=== PATIENT | male | born 1970 | race African-American/Black ===

== ENCOUNTER 2020-08-24 02:54 | Inpatient (IN) | payer OTHER, SELFPAY ==
[2020-08-24 03:25] VITALS: BP 107/58; PULSE 88; RESP 16; TEMP 35.8; O2SAT 98
--- NOTE | 2020-08-24 04:09 | PC.ADMIT ---
Patient is a 49 year old male was transferred from [facility]- ED to [place] [id number] on 08/24/20 at around 0305 for questionable bart. Paient was given Ativan 1 and zypreza zydis 10 at around 2242 on 08/23/20 for disorganization. elevated mood in the ED which patient was calm and able to sleep for couple hours prior to transfered. Patient was so sedated still from medications and was not able to awake to participate in the admission interview. Patient just nod his head to some questions about CV when one of the geriatric social worker from Care Team reviewed and explained the CV for patient. Per crisis and information from [facility], med hx include heat rash, irregular heart beats, EKG, and lab works were unremarkable. NSR and normal EKG result. Past surgical hx: anterior cruciate ligament repair, colon surgery. Pyschiatric hx: Bipolar I with most recent inpatient 2009, and 2012 with the same/similar presentation like disorganization, thought block, labile, trauma hx . Per crisis, stresses from job insecurity and a talk with his long-term partner about legal marriage are big stressors for him. Patient is currently working as as operations and maintenance technican at [employer] and is on the list of two-week [email or web address] start next week. Patient has not taking medication for about six years. Per his partner, patient was forgetful as he forgets to eat. Sleep also was disturbances reduced need for sleep. Nurse to nurse was done. Nurse to DOC will be done shorty in an hour. Patient is on 5 min checks with [facility] bathroom. Patient signed the CV, unable to obtain suicidal thoughts or suicide attempts in the past but per crisis patient has no suicide attemp hx. Patient is a non smoker and has no hx of SA or treatment.
--- NOTE | 2020-08-24 04:47 | PC.NURSE ---
Patient currently sleeping in one of the group rooms.
[2020-08-24 04:48] VITALS: BMI 27.1
--- NOTE | 2020-08-24 09:05 | HO.PSYADMNOT ---
HPI Chief Complaint: 49 year old man who was admitted with an increase Sources of Information: patient interviewed, chart reviewed and crisis/core team assessment reviewed HPI Narrative: Iris was evaluated by COOK CANDY at their crisis office after he was brought to crisis by his and 14 year old daughter. There has been increasing concern about his thinking and his demeanor. He has been suffering under a lot of stress and this has been made worse by his being placed on indefinite furlough by his employer, [employer] He reports that he has a lot of difficulty with transitions. He has been worried about what to do next. The patient's partner is afraid that he is becoming manic and that he needs help to stabilize. He has not been himself. He was hospitalized in 2012. David declines to say much more about his symptoms. He was guarded and not forthcoming with information. He was concerned about what would be in the record. He denies manic symptoms, states he is thinking clearly and he has no psychosis. He was in behavioral control and had no SI. He wanted only to know when he could leave. He did not want to talk about medication and said he would not take them. Past Psychiatric History: Hospital stay in 2013. Details are unclear He is not in treatment at this time Medical Evaluation Reviewed: Hospitalist Sravan Pending [facility] Medical History (Updated 08/24/20 @ 14:58 by Krissy Yee MD) Bipolar disorder Heat rash Irregular heart beats Narrative: No acute symptoms Surgical History History of repair of ACL Family History: Mother has Schizophrenia Social History: Lives with his partner and younger child, age 14. Works at [employer] and he is going to have to go on furlough. Substance History: Denies Trauma History: History but details are unknown Diagnostics Vital Signs (24Hr): Vital Signs - 24 hr 08/24/20 03:25 Temperature 96.4 F L Pulse Rate 88 Respiratory Rate 16 Blood Pressure 107/58 L Pulse Oximetry 98 Body Mass Index 27.1 Meds/Allergies Meds Home Medications Medication Instructions Recorded Confirmed Type No Known Home Meds 08/24/20 08/24/20 History Allergies Allergies Allergy/AdvReac Type Severity Reaction Status Date / Time No Known Allergies Allergy Unverified 08/04/20 18:37 Mental Status Exam Mental Status Exam Patient Appearance: Well Grooomed Patient Orientation: Person, Place, Time and Situation Level of Consciousness: Awake and Appropriate Patient Behavior: Appropriate, Guarded, Suspicious and Fearful Mood Description: Calm, Suspicious, Anxious and Blunted Affect Description: Calm, Suspicious, Anxious and Blunted Patient Cognition Impaired: No Ability to Follow Directions: Good Speech Pattern: Clear, Appropriate and Coherent Memory Description: Intact Hallucinations: None Delusions: Paranoid Ideation Thought Process: Goal Oriented Thought Content: negative for Flight of Ideas, positive for Goal Oriented, negative for Suicidal Ideation and negative for Homicidal Ideation Judgement: Poor Assessment & Plan Assessment & Plan (1) Bipolar disorder: Status: Inactive Code(s): F31.9 - Bipolar disorder, unspecified Assessment and Plan: Encourage medication such as risperdal to treat paranoia Observe Collect collateral history from his Make appropriate referrals ELS 5 days (2) General medical exam: Status: Inactive Code(s): Z00.00 - Encounter for general adult medical examination without abnormal findings Assessment and Plan: Hospitalist intervention appreciated
--- NOTE | 2020-08-24 10:00 | P.CONIM_ITS ---
History of Present Illness Data of Consult Service Date: 08/24/20 <QIAN Sams - Last Filed: 08/24/20 12:17> Requesting physician: Krissy Yee <QIAN Sams - Last Filed: 08/24/20 12:17> Primary Care Provider: This is a 49-year-old male transferred from [facility] emergency department to for management of bart in the setting of bipolar disorder. The hospitalists were asked to see him for a routine consultation. Patient denies any complaints at this time. <QIAN Sams - Last Filed: 08/24/20 12:17> Review of Systems Review of Systems: Yes all other systems are reviewed and are negative <QIAN Sams - Last Filed: 08/24/20 12:17> Constitutional: Constitutional: Denies chills and Denies fever(s) <QIAN Sams - Last Filed: 08/24/20 12:17> Cardiovascular: Cardiovascular: Denies chest pain <QIAN Sams - Last Filed: 08/24/20 12:17> Respiratory: Respiratory: Denies cough <QIAN Sams - Last Filed: 08/24/20 12:17> Gastrointestinal: Gastrointestinal: Denies abdominal pain <QIAN Sams - Last Filed: 08/24/20 12:17> [facility] Medical History: Medical History (Updated 09/03/20 @ 00:01 by Liberty Thorne) Bipolar disorder Heat rash Irregular heart beats <QIAN Sams - Last Filed: 08/24/20 12:17> Family History: Family History (Updated 08/24/20 @ 10:04 by QIAN Sams) Other Hypertension <QIAN Sams - Last Filed: 08/24/20 12:17> Surgical History: Surgical History History of repair of ACL <QIAN Sams - Last Filed: 08/24/20 12:17> Social History: Social History (Updated 08/24/20 @ 10:09 by QIAN Sams) Household Members: Significant Other and Children Housing: Apartment Alcohol intake: current Alcohol intake frequency: other Smoking Status: Former smoker Second Hand Smoke Exposure: No Substance Use Type: Unknown Advance Directives: No Advance Directives Information Provided: No service: No Sexual orientation: Straight/Heterosexual <QIAN Sams Last Filed: 08/24/20 12:17> Meds Allergies/Adverse reactions: Allergies Allergy/AdvReac Type Severity Reaction Status Date / Time No Known Allergies Allergy Unverified 08/04/20 18:37 <QIAN Sams - Last Filed: 08/24/20 12:17> Home medications: Home Medications Medication Instructions Recorded Confirmed Type No Known Home Meds 08/24/20 08/24/20 History <QIAN Sams Last Filed: 08/24/20 12:17> Physical Exam Vital Signs and Narrative: Vital Signs: Last Vital Signs Temp 96.4 F L 08/24/20 03:25 Pulse 88 08/24/20 03:25 Resp 16 08/24/20 03:25 BP 107/58 L 08/24/20 03:25 Pulse Ox 98 08/24/20 03:25 Body Mass Index 27.1 <QIAN Sams Last Filed: 08/24/20 12:17> Const: Nutritional Appearance: well nourished <QIAN Sams Last Filed: 08/24/20 12:17> Orientation/consciousness: patient oriented x3 <QIAN Sams Last Filed: 08/24/20 12:17> HENMT: Head: Yes normocephalic and Yes atraumatic <QIAN Sams Last Filed: 08/24/20 12:17> Eyes: Sclerae: sclerae normal <QIAN Sams Last Filed: 08/24/20 12:17> Chest: Chest palpation & inspection: normal inspection of the chest <QIAN Sams Last Filed: 08/24/20 12:17> Resp: Effort & Inspection: normal respiratory effort and no respiratory distress <QIAN Sams Last Filed: 08/24/20 12:17> Auscultation: clear to auscultation bilaterally <QIAN Sams - Last Filed: 08/24/20 12:17> Cardio: Rate: regular rate <QIAN Sams - Last Filed: 08/24/20 12:17> Rhythm: regular rhythm <QIAN Sams - Last Filed: 08/24/20 12:17> Neuro: General: patient oriented x3 <QIAN Sams Last Filed: 08/24/20 12:17> Cranial nerves: Yes CN's II-XII intact bilaterally and Yes Bilaterally intact EOM present <QIAN Sams Last Filed: 08/24/20 12:17> Extrem: General: Yes normal to inspection <QIAN Sams Last Filed: 08/24/20 12:17> Assessment and Plan (1) General medical exam: Status: Resolved <QIAN Sams Last Filed: 08/24/20 12:17> This is a 49-year-old male transferred from [facility] emergency department to for management of bart in the setting of bipolar disorder. The hospitalists were asked to see him for a routine consultation. patient was medically cleared at [facility] prior to transfer. there are no active medical conditions at this time. thank you for allowing us to participate in the care of this patient This case was discussed with Dr. Mathis <QIAN Sams - Last Filed: 08/24/20 12:17>
[2020-08-24 10:47] VITALS: BP 128/68; PULSE 101; RESP 12; TEMP 36.3; O2SAT 100
--- NOTE | 2020-08-24 12:10 | PC.NURSE ---
PTS ADMISSION COMPLETED. PT OFFERED FLU SHOT WHICH HE SAID HE ORIGINALLY WANTED, BUT DECLINED AT THIS TIME. PT BECAME INCREASINGLY GUARDED T/W INTERVIEWED HIM.
[2020-08-25 06:00] VITALS: BP 121/67; PULSE 87; RESP 16; TEMP 36.3; O2SAT 99
[2020-08-25 07:00] VITALS: BMI 27.8
--- NOTE | 2020-08-25 09:12 | HO.PSYCHPN ---
Subjective Subjective Date of Service: 08/25/20 Reason For Visit: 49 year old man who was admitted with an increase Subjective Notes: Conditional Voluntary Interim History: David reports that although he does not feel that he is ill or that he needs medication his partner feels strongly that he needs to be in treatment for bipolar disorder. He did well on depakote, risperdal and cogentin and would like to start both. He plans to perhaps live with family members for a time when he leaves. Medication Compliance: Yes Side effects from medications: No Attending Groups: Yes Review of Systems Acute medical concerns: No Medical Review of Systems: unchanged Mental Status Exam Mental Status Exam Patient Appearance: Well Grooomed Patient Orientation: Person, Place, Time and Situation Level of Consciousness: Awake and Appropriate Patient Behavior: Appropriate, Guarded, Suspicious and Fearful Mood Description: Calm, Suspicious, Anxious and Blunted Affect Description: Calm, Suspicious, Anxious and Blunted Patient Cognition Impaired: No Ability to Follow Directions: Good Speech Pattern: Clear, Appropriate and Coherent Memory Description: Intact Hallucinations: None Delusions: Paranoid Ideation Thought Process: Goal Oriented Thought Content: negative for Flight of Ideas, positive for Goal Oriented, negative for Suicidal Ideation and negative for Homicidal Ideation Judgement: Poor Diagnostics Vital Signs (24Hr): Vital Signs - 24 hr 08/24/20 10:47 08/25/20 06:00 Temperature 97.3 F 97.4 F Pulse Rate 101 H 87 Respiratory Rate 12 16 Blood Pressure 128/68 121/67 Pulse Oximetry 100 99 Body Mass Index 27.8 Medications Medications Current Medications Generic Name Dose Route Start Last Admin Trade Name Freq PRN Reason Stop Dose Admin Acetaminophen 650 mg 08/24/20 09:09 Acetaminophen 325 Mg Tablet PO Q6H PRN Headache/Pain Mild Scale (1-3) Al Hydroxide/Mg Hydroxide 30 ml 08/24/20 09:09 Magnesium Hydrox/Alum Hydrox 30 Ml Oral.Susp PO Q6H PRN Heartburn/Nausea Hydroxyzine HCl 25 mg 08/24/20 09:09 Hydroxyzine Hcl 25 Mg Tablet PO BEDTIME PRN Anxiety Magnesium Hydroxide 30 ml 08/24/20 09:09 Milk Of Magnesia 30 Ml Oral.Susp PO DAILY PRN Constipation Trazodone HCl 50 mg 08/24/20 09:09 Trazodone Hcl 50 Mg Tablet PO BEDTIME PRN Insomnia Allergies Allergies Allergy/AdvReac Type Severity Reaction Status Date / Time No Known Allergies Allergy Unverified 08/04/20 18:37 Assessment & Plan Assessment & Plan (1) Bipolar disorder: Status: Acute Code(s): F31.9 - Bipolar disorder, unspecified Assessment and Plan: Individual is calmer and in better control. Start depakote, ripserdal and cogentin. Collect collateral history. Anticipate DC 08/29/20 Greater than 50% of the session was spent on counseling and/or coordination of care Patient educated on: diagnosis and medication risk/benefits Reason for contiued inpatient stay Substantial Risk for: rapid decompensation
[2020-08-25 19:35] VITALS: BP 154/71; PULSE 93; TEMP 36.1
[2020-08-25] MEDS: Benztropine Mesylate 0.5 MG TABLET PO (21:59)
[2020-08-25] MEDS: Divalproex Sodium ER 500 MG TAB.ER.24H 1000 MG PO (21:59)
[2020-08-25] MEDS: risperiDONE 1 MG TABLET PO (21:59)
[2020-08-26 06:10] VITALS: BP 118/56; PULSE 85; RESP 16; TEMP 36.3; O2SAT 100
--- NOTE | 2020-08-26 10:29 | HO.PSYCHPN ---
Subjective Subjective Reason For Visit: 49 year old man who was admitted with an increase Diagnostics Vital Signs (24Hr): Vital Signs - 24 hr 08/25/20 19:35 08/26/20 06:10 Temperature 97.0 F 97.4 F Pulse Rate 93 85 Respiratory Rate 16 Blood Pressure 154/71 H 118/56 L Pulse Oximetry 100 Body Mass Index 27.8 Medications Medications Current Medications Generic Name Dose Route Start Last Admin Trade Name Freq PRN Reason Stop Dose Admin Acetaminophen 650 mg 08/24/20 09:09 Acetaminophen 325 Mg Tablet PO Q6H PRN Headache/Pain Mild Scale (1-3) Al Hydroxide/Mg Hydroxide 30 ml 08/24/20 09:09 Magnesium Hydrox/Alum Hydrox 30 Ml Oral.Susp PO Q6H PRN Heartburn/Nausea Benztropine Mesylate 0.5 mg 08/25/20 21:00 08/25/20 21:59 Benztropine Mesylate 0.5 Mg Tablet PO 0.5 mg BEDTIME DAVID Administration Divalproex Sodium 1,000 mg 08/25/20 21:00 08/25/20 21:59 Divalproex Sodium Er 500 Mg Tab.Er.24h PO 1,000 mg BEDTIME DAVID Administration Hydroxyzine HCl 25 mg 08/24/20 09:09 Hydroxyzine Hcl 25 Mg Tablet PO BEDTIME PRN Anxiety Magnesium Hydroxide 30 ml 08/24/20 09:09 Milk Of Magnesia 30 Ml Oral.Susp PO DAILY PRN Constipation Risperidone 1 mg 08/25/20 21:00 08/25/20 21:59 Risperidone 1 Mg Tablet PO 1 mg BEDTIME DAVID Administration Trazodone HCl 50 mg 08/24/20 09:09 Trazodone Hcl 50 Mg Tablet PO BEDTIME PRN Insomnia Allergies Allergies Allergy/AdvReac Type Severity Reaction Status Date / Time No Known Allergies Allergy Unverified 08/04/20 18:37 Assessment & Plan Greater than 50% of the session was spent on counseling and/or coordination of care
--- NOTE | 2020-08-26 13:00 | PM.PSYDC ---
DS: Providers Provider Date of admission: 08/24/20 02:54 Primary care physician: Unknown Physician Consults: 08/24/20 09:10 Consult to Hospitalist Routine Consulting Provider: Nora Barnett Reason for consultation: Protocol - admission from [facility] Attending physician on discharge: Krissy Yee Anticipated date of discharge: 08/26/20 DS: Diagnosis Discharge Diagnosis (1) Bipolar disorder: Status: Acute Problem details: Individual has started medications and has tolerated the same. He has not had any behavioral issues.h He plans to go to his FU appointments Discharge Plan Discharge Patient Disposition: Home, Self-Care Referrals: DR. DE PAZ, PSYCHIATRIST [Other] - 09/20/20 1:00 pm ([facility]LE[facility]) STAR AHMADI, THERAPIST [Other] - 09/06/20 10:00 am ([facility]) Abbie Montes MD [Physician] - 09/02/20 12:00 pm Discharge Medications: New benztropine 0.5 mg Tablet 0.5 mg PO BEDTIME Qty: 30 RF: 0 trazodone 50 mg Tablet 50 mg PO BEDTIME PRN (Reason: Insomnia) Qty: 30 RF: 0 divalproex 500 mg Tablet Extended Release 24 Hr 1,000 mg PO BEDTIME Qty: 60 RF: 0 risperidone 1 mg Tablet 1 mg PO BEDTIME Qty: 30 RF: 0 No Action No Known Home Meds RF: 0 Discharge Orders: Discharge Order (Routine); Ordered 08/26/20 Ordered By: Krissy Yee Diet: advance to your usual diet Activity on Discharge: As tolerated Stand Alone Forms: Community Support Other Ambulatory Orders: Valproate (Routine) Timeframe: 20200830 Facility: [facility] - Location: [address]Lab Ordered By: Krissy Yee Visit Report Forms: Patient Portal Discharge page Care Plan Goals: Reduce paranoia Health Concerns: Paranoia Plan of Treatment: Continue on medications Follow up with your appointments Go to lab at [facility] to have your depakote level checked on 08/30/20. Mental Status Exam Mental Status Exam Patient Appearance: Well Grooomed Patient Orientation: Person, Place, Time and Situation Level of Consciousness: Awake and Appropriate Patient Behavior: Appropriate, Guarded and Suspicious Mood Description: Calm, Anxious and Blunted Affect Description: Calm, Anxious and Blunted Patient Cognition Impaired: No Ability to Follow Directions: Good Speech Pattern: Clear, Appropriate and Coherent Memory Description: Intact Hallucinations: None Delusions: Paranoid Ideation Thought Process: Goal Oriented Thought Content: negative for Flight of Ideas, positive for Goal Oriented, negative for Suicidal Ideation and negative for Homicidal Ideation Judgement: Poor DS: Summary Hospital Course Hospital Course: [facility] [address] Simmons was evaluated by RADIOGRAPHY TECHNICIAN at their crisis office after he was brought to crisis by his and 14 year old daughter. There had been increasing concern about his thinking and his demeanor. He has been suffering under a lot of stress and this has been made worse by his being placed on indefinite furlough by his employer, [employer]. He reported that he has a lot of difficulty with transitions. He has been worried about what to do next. The patient's partner was afraid that he is becoming manic and that he needs help to stabilize. He has not been himself. He was hospitalized in 2013. David declined to say much more about his symptoms. He was guarded and not forthcoming with information. He was concerned about what would be in the record. He denies manic symptoms, states he is thinking clearly and he has no psychosis. He was in behavioral control and had no SI. He wanted only to know when he could leave. He did not want to talk about medication and said he would not take them. Past Psychiatric History: Hospital stay in 2013. Details are unclear He is not in treatment at this time. David was admitted on a CV. He was medically cleared prior to his admission. He had no acute medical issues. Labs are below. On arrival he was quite guarded. He declined to give very much information. He was paranoid but did not appear to be elevated in his mood. He was sleeping well. He He initially declined to take medication. However, his partner expressed concern and asked him to re-start the medication he had been on in the past. He agreed to do so and he tolerated them. He agreed to FU with his appointments. MANUEL was able to talk with his partner and she agreed that he was stable to go home. David reports that he will stay his family if there is tension. Time spent discussing smoking cessation with patient: 3 to 10 minutes Status at Discharge Functional status at discharge: independent ambulation Overall status at discharge: patient is back to baseline Time Spent with Patient Time attestation: Total time spent providing and/or coordinating discharge services: Time spent: Greater than 30 minutes
== END 2020-08-26 13:30 | disposition home or self-care (01) | DRG 753 ==
PROVIDERS: Admitting Provider Psychiatry & Neurology Psychiatry; Visit Provider Psychiatry & Neurology Psychiatry
DX: F31.9 Bipolar disorder, unspecified (principal); Z79.899 Other long term (current) drug therapy

== ENCOUNTER 2020-08-30 06:55 | Outpatient (REF) | payer OTHER, SELFPAY ==
[2020-08-30 08:26] LABS: Valproate 77.2 mcg/mL (50.0-100.0)
== END 2020-08-30 06:56 | disposition home or self-care (01) ==
LOC: HO.LAB 06:55
PROVIDERS: PCP Internal Medicine; Visit Provider Psychiatry & Neurology Psychiatry
DX: F31.9 Bipolar disorder, unspecified (principal)
CPT/HCPCS: 80164